=== PATIENT | male | born 1930 | race Hispanic/Latino ===

== ENCOUNTER 2016-10-30 18:14 | Inpatient (IN) | payer MEDICARE, OTHER ==
[2016-10-30 18:20] VITALS: BMI 25.0
--- NOTE | 2016-10-30 18:40 | C.PDOC ---
History Of Present Illness 86 year old male was brought to the ED after floor associate had trouble waking him up at around 6:30pm and once awake he had slurred speech, not moving right arm, and with right facial droop. Cable Way Operator notes patient had breakfast and lunch with no issues and denies any other complaints at this time. Time Seen by Provider: 10/30/16 18:30 Chief Complaint (Nursing): Altered Mental Status History Per: Other (floor associate) History/Exam Limitations: None Onset/Duration Of Symptoms: Mins Onset Of Symptoms: Other (6:30) Current Symptoms Are (Timing): Better Recent travel outside of the [place]: No Associated Symptoms: denies: Chills, Sweating, Vomiting, Diarrhea, Falling Past Medical History Reviewed: Historical Data, Nursing Documentation, Vital Signs Vital Signs: Last Vital Signs Temp 98.7 F 10/30/16 18:42 Pulse 71 10/30/16 19:26 Resp 16 10/30/16 19:26 BP 118/66 10/30/16 19:26 Pulse Ox 98 10/30/16 19:26 - Medical History PMH: Depression Family History: States: No Known Family Hx - Social History Hx Alcohol Use: No Hx Substance Use: No - Immunization History Hx Tetanus Toxoid Vaccination: No Hx Influenza Vaccination: No Hx Pneumococcal Vaccination: No Review Of Systems Constitutional: Negative for: Fever, Chills, Sweats Gastrointestinal: Negative for: Nausea, Vomiting, Abdominal Pain, Diarrhea Neurological: Positive for: Change in Speech (slurred speech ), Other (facial droop and not moving right arm ) Physical Exam - Physical Exam Appears: Non-toxic, No Acute Distress Skin: Warm, Dry Head: Normacephalic Eye(s): bilateral: Normal Inspection, PERRL, EOMI Oral Mucosa: Moist Neck: Normal ROM, Supple Chest: Symmetrical Cardiovascular: Rhythm Regular Respiratory: No Accessory Muscle Use, No Rales, No Rhonchi, No Stridor, No Wheezing Gastrointestinal/Abdominal: Soft, No Tenderness, No Distention, No Guarding, No Rebound Extremity: No Tenderness, Other (flacid right arm and negative babinski's ) Extremity: Bilateral: Atraumatic Pulses: Left Carotid: Normal, Right Carotid: Normal Neurological/Psych: No Oriented x3, No Normal Speech, No Normal Cranial Nerves, No Normal Motor, Eyes Open With Command, Dysarthria, Other (awake, alert, following commands but confused speech) Gait: Other (patient is non-ambulatory) Other Neurological Findings: Facial Palsy (right facial droop ) Extremity: Right: No Drift, No Effort Against [place], Left: No Effort Against [place], No Movement, Upper: No Drift, No Movement, Lower: No Effort Against [place] ED Course And Treatment - Laboratory Results Result Diagrams: 10/30/16 19:05 10/30/16 19:05 Lab Interpretation: No Acute Changes ECG: Interpreted By Id ECG Rhythm: Sinus Rhythm (with PACs) ECG Interpretation: No Acute Changes - Radiology CXR: Interpreted by Id CXR Interpretation: Yes: No Acute Disease (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 Parenchymal hemorrhage involving the left lentiform nucleus extending medially into the thalamus. and superiorly into the dos santos radiata. Minimal mass effect noted. 2. Cortical atrophy. 3. Lacunar infarct in the right basal ganglia. 4. Encephalomalacia in deep white matter structures reflecting small vessel ischemic disease Reevaluation Time: 20:53 Reassessment Condition: Unchanged (Patient is stable and remains awake and alert.) - Physician Consult Information Time Consulting Physician Contacted: 20:53 Physician Contacted: Casa Fischer Jr. Outcome Of Conversation: Case discussed with Dr Dos Santos who states that this intracranial bleed is not a surgical case. Patient will be admitted to Dr Fischer for medical management. Accepted to ICU by Dr Barksdale NIHSS Stroke Scale - Date/Time Evaluation Performed Date Performed: 10/30/16 Time Performed: 19:29 When Was NIHSS Performed: Baseline - How Severe is the [place]oke Level of Consciousness: 0=Alert LOC to Questions: 0=Both comments correct LOC to commands: 0=Obeys both correctly Best Gaze: 0=Normal Visual: 0=No visual loss Facial: 1=Minor asymmetry Motor Arm - Left: 0=No drift Motor Arm - Right: 4=No movement Motor Leg - Left: 3=No effort against gravity (falls immediately) Motor Leg - Right: 3=No effort against gravity (falls immediately) Limb Ataxia: 0=Absent Sensory: 0=Normal Best Language: 1=Mild to moderate aphasia Dysarthia: 2=Severe, near unintelligible or worse Extinction & Inattention (Neglect): 0=Normal, no object Score: 14 Severity Of Stroke: 5-15= Moderate Stroke Disposition - Disposition Disposition: HOSPITALIZED Disposition Time: 20:55 Condition: SERIOUS - Clinical Impression Clinical Impression: Intracranial hemorrhage - Scribe Statement The provider has reviewed the documentation as recorded by the Scribanup Levi All medical record entries made by the Maira were at my direction and personally dictated by me. I have reviewed the chart and agree that the record accurately reflects my personal performance of the history, physical exam, medical decision making, and the department course for this patient. I have also personally directed, reviewed, and agree with the discharge instructions and disposition.
[2016-10-30 19:11] LABS: BASO # 0.1 K/uL (0.0-0.2); BASO % 0.7 % (0.0-2.0); EOS # 0.3 K/uL (0.0-0.7); EOS % 2.6 % (0.0-4.0); HEMATOCRIT 46.9 % (35.0-51.0); LYMPH # 1.3 K/uL (1.0-4.3); LYMPH % 13.1 % (20.0-40.0); MEAN CELL VOLUME 92.2 fL (80.0-94.0); MEAN CORPUSCULAR HEMOGLOBIN 29.7 pg (27.0-31.0); MEAN CORPUSCULAR HGB CONC 32.2 g/dL (33.0-37.0); MEAN PLATELET VOLUME 8.6 fL (7.2-11.7); MONO # 0.6 K/uL (0.0-0.8); MONO % 6.2 % (0.0-10.0); WHITE BLOOD COUNT 10.1 K/uL (4.8-10.8)
[2016-10-30 19:22] LABS: CHLORIDE 104 mmol/L (98-107); SODIUM 140 mmol/L (132-148)
[2016-10-30 19:23] LABS: POTASSIUM 4.4 mmol/L (3.6-5.2)
[2016-10-30 19:24] LABS: CARBON DIOXIDE 22 mmol/L (22-30); CHOLESTEROL 148 mg/dL (0-199); GFR AFRICAN-AMERICAN > 60
[2016-10-30 19:25] LABS: ALB/GLOB RATIO 1.1 (1.0-2.1); ALKALINE PHOSPHATASE 97 U/L (38-126); ALT/SGPT 13 U/L (21-72); AST/SGOT 21 U/L (17-59); BILIRUBIN,TOTAL 0.9 mg/dL (0.2-1.3); BLOOD UREA NITROGEN 21 mg/dL (9-20); CALCIUM 8.9 mg/dl (8.6-10.4); GLUCOSE,RANDOM 88 mg/dL (75-110); TOTAL PROTEIN 7.9 g/dL (6.3-8.3)
--- NOTE | 2016-10-30 19:32 | CT ---
EXAM: CT Head Without Intravenous Contrast CLINICAL HISTORY: 86 years old, male; Signs and symptoms; Altered mental status/memory loss; Additional info: Code stroke TECHNIQUE: Axial computed tomography images of the head/brain without intravenous contrast. This CT exam was performed using one or more of the following dose reduction techniques: automated exposure control, adjustment of the mA and/or kV according to patient size, and/or use of iterative reconstruction technique. EXAM DATE/TIME: Exam ordered 10/30/2016 6:31 PM COMPARISON: No relevant prior studies available. FINDINGS: Brain: There is a focal area of hyperintensity noted within the left lentiform nucleus extending into the thalamus reflecting a parenchymal hemorrhage. There is mild mass effect upon the body of the left lateral ventricle. 4 mm low density area in the right lentiform nucleus is consistent with a lacunar infarct. There is mild generalized cortical atrophy. Low density is noted in the periventricular white matter extending into the dos santos radiata and centrum semiovale bilaterally reflecting encephalomalacia related to small vessel ischemic disease. Bones/joints: Unremarkable. No acute fracture. Soft tissues: Unremarkable. Sinuses: Unremarkable as visualized. No acute sinusitis. Mastoid air cells: Unremarkable as visualized. No mastoid effusion. IMPRESSION: 1. Parenchymal hemorrhage involving the left lentiform nucleus extending medially into the thalamus and superiorly into the dos santos radiata. Minimal mass effect noted 2. Cortical atrophy 3. Lacunar infarct in the right basal ganglia 4. Encephalomalacia in deep white matter structures reflecting small vessel ischemic disease
--- NOTE | 2016-10-30 21:20 | CP.PCM.HP ---
History of Present Illness - History of Present Illness History of Present Illness: CC: AMS 86 M with PMH of Prostate CA was brought in by EMS to the [facility] after bin cleaner had trouble waking him up at around 6:30pm. History was provided by bin cleaner, Tania ([phone]), since patient was unable to provide any information. Patient had slurred speech, right hemiparesis and right facial droop at that time. Log Getter reports patient had breakfast and lunch with no issues. Patient was last seen at his baseline around noon. Patient is normally bedridden but able to move all four extremities and alert, awake, and oriented x 3. ROS was unobtainable due to altered mental status. PMD: Dr. Tellez (LEGAL LIBRARIAN Leelee Jimenez sees him at home monthly) PMH: Prostate Meds: Home Medication list needs verified Allergy: NKDA PSH: ?Prostate surgery Hosp: multiple admission for back pain and weakness 3 years ago FH: unknown Social: bin cleaner denies tobacco/ETOH/illicit drug use, bin cleaner lives above patient in apartment, patient is bedridden since falling 2 years ago, needs assistance with daily activities (bathing, changing, moving) Present on Admission - Present on Admission Any Indicators Present on Admission: No History of DVT/PE: No History of Uncontrolled Diabetes: No Urinary Catheter: No Decubitus Ulcer Present: No Review of Systems - Review of Systems Systems not reviewed;Unavailable: Acuity of Condition, Altered Mental Status Past Patient History - Past Social History Smoking Status: Never Smoked - GENITOURINARY/GYNECOLOGICAL Hx Genitourinary Disorders: Yes Other/Comment: prostate cancer - PSYCHIATRIC Hx Depression: Yes Hx Substance Use: No - SURGICAL HISTORY Hx Surgeries: No Meds Allergies/Adverse Reactions: Allergies Allergy/AdvReac Type Severity Reaction Status Date / Time No Known Allergies Allergy Verified 10/30/16 18:17 Physical Exam - Constitutional Appears: Confused - Head Exam Head Exam: ATRAUMATIC, NORMOCEPHALIC - Eye Exam Eye Exam: Normal appearance Pupil Exam: Miosis - ENT Exam ENT Exam: Mucous Membranes Dry - Neck Exam Neck exam: Positive for: Normal Inspection - Respiratory Exam Respiratory Exam: Rhonchi, Wheezes. absent: Accessory Muscle Use, Respiratory Distress - Cardiovascular Exam Cardiovascular Exam: RRR, +S1, +S2 - GI/Abdominal Exam GI & Abdominal Exam: Normal Bowel Sounds, Soft. absent: Distended, Firm, Guarding, Rebound - Extremities Exam Extremities exam: Positive for: normal capillary refill, pedal pulses present Additional comments: R sided hemiparesis - Back Exam Back exam: NORMAL INSPECTION - Neurological Exam Neurological exam: Altered Additional comments: patient aphasic, mumbling when asked questions - Expanded Neurological Exam Expanded Neurological exam: Total Aphasia Speech: Expressive Aphasia, Garbled Speech Cranial nerves: EOM's Intact: Normal, Facial [place] w/Forehead Movement: Abnormal Right Neuro motor strength exam: Left Upper Extremity: 4, Right Upper Extremity: 0, Left Lower Extremity: 3, Right Lower Extremity: 0 Coma Scale Eye Opening: To Voice Coma Scale Motor Response: Localizes to Pain Coma Scale Verbal: Confused, Incomprehensible Coma Scale Total: 14 - Psychiatric Exam Psychiatric exam: Flat Affect - Skin Skin Exam: Dry, Intact, Normal Color Results - Vital Signs Recent Vital Signs: Last Vital Signs Temp 98.2 F 10/30/16 20:30 Pulse 76 10/30/16 20:30 Resp 18 10/30/16 20:30 BP 120/67 10/30/16 20:30 Pulse Ox 100 10/30/16 20:30 - Labs Result Diagrams: 10/30/16 19:05 10/30/16 19:05 Assessment & Plan - Assessment and Plan (Free Text) Plan: 1. Altered Mental Status ICU CT head: 1. Parenchymal hemorrhage involving the left lentiform nucleus extending medially into the thalamus and superiorly into the dos santos radiata. Minimal mass effect noted 2. Cortical atrophy 3. Lacunar infarct in the right basal ganglia 4. Encephalomalacia in deep white matter structures reflecting small vessel ischemic disease (see full report) CXR EKG: Sinus rhythm with PVCs at a rate of 69 bpm Neurology consult, Dr. Jose, help appreciated Neurochecks Q1 Elevated head of bed f/u daily labs PT/OT 2. History of Prostate CA Hold flomax 3. Prophylactic Measures Scds anticoagulation contraindicated due to IC hemorrhage Protonix 40 mg IVP daily
[2016-10-31 01:34] LABS: RBC URINE 11 /hpf (0-3); URINE BACTERIA MOD (<OCC); URINE BILIRUBIN NEGATIVE (NEGATIVE); URINE BLOOD 2+ (NEGATIVE); URINE COLOR Yellow (YELLOW); URINE GLUCOSE (UA) NORMAL (Normal); URINE KETONE NEGATIVE (NEGATIVE); URINE LEUKOCYTE ESTERASE 3+ Leu/uL (Negative); URINE PROTEIN 1+ mg/dL (NEGATIVE); URINE UROBILINOGEN NORMAL mg/dL (0.2-1.0); WBC CLUMPS FEW /hpf; WBC URINE 601 /hpf (0-5)
--- NOTE | 2016-10-31 04:32 | CP.PCM.CON ---
History of Present Illness - History of Present Illness History of Present Illness: CC: AMS 86 M with PMH of Prostate CA was brought in by EMS to the [facility] after rubber block layer had trouble waking him up at around 6:30pm. History was provided by rubber block layer, Tania ([phone]), since patient was unable to provide any information. Patient had slurred speech, right hemiparesis and right facial droop at that time. Note Teller reports patient had breakfast and lunch with no issues. Patient was last seen at his baseline around noon. Patient is normally bedridden but able to move all four extremities and alert, awake, and oriented x 3. ROS was unobtainable due to altered mental status. PMD: Dr. Tellez (APPAREL MERCHANDISER Leelee Jimenez sees him at home monthly) PMH: Prostate Meds: Home Medication list needs verified Allergy: NKDA PSH: ?Prostate surgery Hosp: multiple admission for back pain and weakness 3 years ago FH: unknown Social: rubber block layer denies tobacco/ETOH/illicit drug use, rubber block layer lives above patient in apartment, patient is bedridden since falling 2 years ago, needs assistance with daily activities (bathing, changing, moving) Review of Systems - Review of Systems All systems: reviewed and no additional remarkable complaints except Review of Systems: confused Past Patient History - Past Social History Smoking Status: Never Smoked - GENITOURINARY/GYNECOLOGICAL Hx Genitourinary Disorders: Yes Other/Comment: prostate cancer - PSYCHIATRIC Hx Depression: Yes Hx Substance Use: No - SURGICAL HISTORY Hx Surgeries: No - ANESTHESIA Hx Anesthesia: No Meds Allergies/Adverse Reactions: Allergies Allergy/AdvReac Type Severity Reaction Status Date / Time No Known Allergies Allergy Verified 10/30/16 18:17 - Medications Medications: Current Medications Ondansetron HCl (Zofran Inj) 4 mg IVP Q6H PRN PRN Reason: Nausea/Vomiting Pantoprazole Sodium (Protonix Inj) 40 mg IVP DAILY JENNIFER Physical Exam - Head Exam Head Exam: ATRAUMATIC Additional comments: rt side weakness mumbling eye focusing moving left side follows simple commands Results - Vital Signs Recent Vital Signs: Last Vital Signs Temp 98.2 F 10/30/16 20:30 Pulse 73 10/31/16 04:00 Resp 18 10/31/16 04:00 BP 109/66 10/31/16 03:41 Pulse Ox 96 10/31/16 04:00 - Labs Result Diagrams: 10/30/16 19:05 10/30/16 19:05 Labs: Laboratory Results - last 24 hr 10/31/16 00:00 Urine Color Yellow Urine Clarity Hazy Urine pH 5.0 Ur Specific [place] 1.012 Urine Protein 1+ H Urine Glucose (UA) Normal Urine Ketones Negative Urine Blood 2+ H Urine Nitrate Positive H Urine Bilirubin Negative Urine Urobilinogen Normal Ur Leukocyte Esterase 3+ H Urine WBC (Auto) 601 H Urine RBC (Auto) 11 H Urine WBC Clumps (Auto) Few H Ur Squamous Epith Cells 2 Urine Bacteria Mod H Assessment & Plan (1) Vasculopathy Status: Acute (2) Intracranial hemorrhage Assessment and Plan: ICH likely vasculopathy close neuro watch BP control no anti coagulations now Status: Acute
[2016-10-31 06:20] LABS: BASO # 0.1 K/uL (0.0-0.2); BASO % 1.2 % (0.0-2.0); EOS # 0.3 K/uL (0.0-0.7); EOS % 3.2 % (0.0-4.0); HEMATOCRIT 42.5 % (35.0-51.0); LYMPH # 1.4 K/uL (1.0-4.3); LYMPH % 15.2 % (20.0-40.0); MEAN CELL VOLUME 90.6 fL (80.0-94.0); MEAN CORPUSCULAR HEMOGLOBIN 30.5 pg (27.0-31.0); MEAN CORPUSCULAR HGB CONC 33.7 g/dL (33.0-37.0); MEAN PLATELET VOLUME 9.1 fL (7.2-11.7); MONO # 0.7 K/uL (0.0-0.8); MONO % 7.2 % (0.0-10.0); NRBC % 0.1 % (0.0-2.0); RED CELL DISTRIBUTION WIDTH 14.3 % (11.5-14.5); WHITE BLOOD COUNT 9.2 K/uL (4.8-10.8)
[2016-10-31 06:30] LABS: CHLORIDE 106 mmol/L (98-107); SODIUM 141 mmol/L (132-148)
[2016-10-31 06:31] LABS: POTASSIUM 3.6 mmol/L (3.6-5.2)
[2016-10-31 06:32] LABS: CHOLESTEROL 126 mg/dL (0-199)
[2016-10-31 06:33] LABS: ALKALINE PHOSPHATASE 92 U/L (38-126); ALT/SGPT 15 U/L (21-72); AST/SGOT 12 U/L (17-59); BILIRUBIN,TOTAL 0.8 mg/dL (0.2-1.3); BLOOD UREA NITROGEN 20 mg/dL (9-20); CALCIUM 8.6 mg/dl (8.6-10.4); CARBON DIOXIDE 24 mmol/L (22-30); GFR AFRICAN-AMERICAN > 60; GLUCOSE,RANDOM 96 mg/dL (75-110); PHOSPHOROUS 3.2 mg/dL (2.5-4.5); TOTAL PROTEIN 6.9 g/dL (6.3-8.3)
[2016-10-31 06:34] LABS: MAGNESIUM 2.2 mg/dL (1.6-2.3)
[2016-10-31 07:00] LABS: THYROID STIMULATING HORMONE 1.75 mIU/L (0.46-4.68)
[2016-10-31 07:59] LABS: INR 1.2
--- NOTE | 2016-10-31 08:35 | RAD ---
HISTORY: altered mental status COMPARISON: Chest x-ray performed 07/10/12 TECHNIQUE: Chest, one view. FINDINGS: LUNGS: Biapical pleural thickening. Prominent interstitial/fibrotic changes predominantly in the lung periphery and lung bases. Granulomatous changes with multiple calcified nodules in the lung apices. No significant pleural effusion. No definite pneumothorax. Please note that chest x-ray has limited sensitivity for the detection of pulmonary masses. CARDIOVASCULAR: Mild cardiomegaly. Ectatic aorta. OSSEOUS STRUCTURES: Degenerative changes. Osseous demineralization. VISUALIZED UPPER ABDOMEN: Unremarkable. OTHER FINDINGS: None. IMPRESSION: Chronic appearing interstitial changes/ fibrotic changes. Granulomatous infection. Biapical pleural thickening.
[2016-10-31] MEDS: Sodium Chloride 0.9% 1,000 ML IV SCH (11:20)
--- NOTE | 2016-10-31 19:30 | CP.PCM.PN ---
<Lora Madden - Last Filed: 10/31/16 19:25> Subjective - Date & Time of Evaluation Date of Evaluation: 10/31/16 Time of Evaluation: 19:25 - Subjective Subjective: Patient seen and examined at bedside with attending. Review of system unable to be obtained due to intracranial hemorrhage. Patient displays dysarthria and aphasia. Patient DNR/DNI. Objective - Vital Signs/Intake and Output Vital Signs (last 24 hours): Temp Pulse Resp BP Pulse Ox 96.7 F L 74 19 103/66 96 10/31/16 16:00 10/31/16 19:00 10/31/16 19:00 10/31/16 18:40 10/31/16 19:00 Intake and Output: 10/31/16 11/01/16 18:59 06:59 Intake Total 1065 Output Total 250 Balance 815 - Medications Medications: Current Medications Sodium Chloride (Sodium Chloride 0.9%) 1,000 mls @ 75 mls/hr IV .[id number] [facility] Last Admin: 10/31/16 11:20 Dose: 75 mls/hr Ondansetron HCl (Zofran Inj) 4 mg IVP Q6H PRN PRN Reason: Nausea/Vomiting Pantoprazole Sodium (Protonix Inj) 40 mg IVP DAILY [facility] Last Admin: 10/31/16 10:50 Dose: 40 mg Tamsulosin HCl (Flomax) 0.4 mg PO DAILY [facility] - Labs Labs: 10/31/16 06:15 10/31/16 06:15 PT 13.7 SECONDS (9.7-12.2) H 10/31/16 07:43 INR 1.2 10/31/16 07:43 APTT 27 SECONDS (21-34) D 10/31/16 07:43 - Constitutional Appears: Non-toxic, No Acute Distress, Chronically Ill - Head Exam Head Exam: ATRAUMATIC, NORMAL INSPECTION, NORMOCEPHALIC - Eye Exam Eye Exam: Normal appearance - ENT Exam ENT Exam: Mucous Membranes Moist - Neck Exam Neck Exam: Normal Inspection - Respiratory Exam Respiratory Exam: Clear to Ausculation Bilateral, NORMAL BREATHING PATTERN. absent: Rales, Rhonchi, Wheezes - Cardiovascular Exam Cardiovascular Exam: +S1, +S2. absent: Tachycardia - GI/Abdominal Exam GI & Abdominal Exam: Soft, Normal Bowel Sounds - Neurological Exam Neurological Exam: Alert, Awake. absent: Oriented x3 Additional comments: dysarthria and aphasia - Psychiatric Exam Additional comments: unable to assess Assessment and Plan - Assessment and Plan (Free Text) Plan: Altered Mental Status ICU Code State DNR/DNI f/u Repeat CT head CT head: 1. Parenchymal hemorrhage involving the left lentiform nucleus extending medially into the thalamus and superiorly into the dos santos radiata. Minimal mass effect noted 2. Cortical atrophy 3. Lacunar infarct in the right basal ganglia 4. Encephalomalacia in deep white matter structures reflecting small vessel ischemic disease (see full report) CXR : Chronic appearing interstitial changes/fibrotic changes. Granulomatous infection. Biapical pleural thickening. EKG: Sinus rhythm with PVCs at a rate of 69 bpm Neurology consult, Dr. Jose, help appreciated Neurochecks Q1 Elevated head of bed f/u daily labs Management per ICU PT/OT History of Prostate CA Continue flomax Prophylactic Measures Scds anticoagulation contraindicated due to IC hemorrhage Protonix 40 mg IVP daily <Casa Fischer Jr. - Last Filed: 11/07/16 11:16> Objective - Vital Signs/Intake and Output Vital Signs (last 24 hours): Temp Pulse Resp BP Pulse Ox 98.5 F 73 20 157/84 H 97 11/03/16 15:00 11/03/16 15:00 11/03/16 15:00 11/03/16 15:00 11/03/16 15:00 - Labs Labs: 11/03/16 07:47 11/03/16 07:47 PT 13.7 SECONDS (9.7-12.2) H 10/31/16 07:43 INR 1.2 10/31/16 07:43 APTT 27 SECONDS (21-34) D 10/31/16 07:43 Attending/Attestation - Attestation I have personally seen and examined this patient.: Yes I have fully participated in the care of the patient.: Yes I have reviewed all pertinent clinical information, including history, physical exam and plan: Yes Notes (Text): 11/07/16 11:16 Agree with resident note and findings
--- NOTE | 2016-10-31 19:49 | CP.PCM.CON ---
History of Present Illness - History of Present Illness History of Present Illness: Mr. Cornelius is an 86-year-old man with a past medical history of dementia, who is essentially bed-bound and dependent, who was found with right side weakness and speech difficulty by his dramatic director. He was brought to the ED, where a CT of the head showed a left basal ganglia intraparenchymal hemorrhage. The patient is unable to provide any information since he is significantly aphasic, but the information was obtained form the chart, dramatic director and nursing. According to the history, the patient is not hypertensive and was only being treated for arthritis pain and insomnia. Review of Systems - Review of Systems Systems not reviewed;Unavailable: Dementia, Altered Mental Status All systems: reviewed and no additional remarkable complaints except Past Patient History - Past Social History Smoking Status: Never Smoked - MUSCULOSKELETAL/RHEUMATOLOGICAL Hx Falls: No - GENITOURINARY/GYNECOLOGICAL Hx Genitourinary Disorders: Yes Other/Comment: prostate cancer - PSYCHIATRIC Hx Depression: Yes Hx Substance Use: No - SURGICAL HISTORY Hx Surgeries: No - ANESTHESIA Hx Anesthesia: No Meds Allergies/Adverse Reactions: Allergies Allergy/AdvReac Type Severity Reaction Status Date / Time No Known Allergies Allergy Verified 10/30/16 18:17 - Medications Medications: Current Medications Sodium Chloride (Sodium Chloride 0.9%) 1,000 mls @ 75 mls/hr IV .[id number] [facility] Last Admin: 10/31/16 11:20 Dose: 75 mls/hr Ondansetron HCl (Zofran Inj) 4 mg IVP Q6H PRN PRN Reason: Nausea/Vomiting Pantoprazole Sodium (Protonix Inj) 40 mg IVP DAILY [facility] Last Admin: 10/31/16 10:50 Dose: 40 mg Tamsulosin HCl (Flomax) 0.4 mg PO DAILY [facility] Physical Exam - Constitutional Appears: Agitated, Confused - Head Exam Head Exam: ATRAUMATIC, NORMAL INSPECTION, NORMOCEPHALIC - Eye Exam Eye Exam: EOMI, Normal appearance, PERRL - ENT Exam ENT Exam: Mucous Membranes Moist, Normal Exam - Neck Exam Neck exam: Positive for: Normal Inspection - Respiratory Exam Respiratory Exam: Clear to Auscultation Bilateral, NORMAL BREATHING PATTERN - Cardiovascular Exam Cardiovascular Exam: REGULAR RHYTHM, +S1, +S2 - GI/Abdominal Exam GI & Abdominal Exam: Normal Bowel Sounds, Soft. absent: Tenderness - Rectal Exam Rectal Exam: Deferred - Extremities Exam Extremities exam: Positive for: normal inspection - Back Exam Back exam: NORMAL INSPECTION - Neurological Exam Neurological exam: Altered, CN II-XII Intact Additional comments: Productive and receptive aphasia with dysarthria and oropharyngeal weakness. Right side hemiplegia with brisk reflexes and upgoing plantar response. Left side moves, but he does not follow commands. Reflexes are normal on the left with downgoing plantar response. Sensation appears to be intact on the left. Gait or Romberg could not be assessed. - Psychiatric Exam Psychiatric exam: Agitated, Anxious - Skin Skin Exam: Dry, Intact, Normal Color, Warm Results - Vital Signs Recent Vital Signs: Last Vital Signs Temp 96.7 F L 10/31/16 16:00 Pulse 74 10/31/16 19:00 Resp 19 10/31/16 19:00 BP 103/66 10/31/16 18:40 Pulse Ox 96 10/31/16 19:00 - Labs Result Diagrams: 10/31/16 06:15 10/31/16 06:15 Labs: Laboratory Results - last 24 hr 10/31/16 10/31/16 10/31/16 00:00 06:15 06:15 WBC 9.2 RBC 4.69 Hgb 14.3 Hct 42.5 MCV 90.6 MCH 30.5 MCHC 33.7 RDW 14.3 Plt Count 195 MPV 9.1 Neut % (Auto) 73.2 Lymph % (Auto) 15.2 L [place] % (Auto) 7.2 Eos % (Auto) 3.2 Baso % (Auto) 1.2 Neut # 6.7 Lymph # 1.4 [place] # 0.7 Eos # 0.3 Baso # 0.1 PT INR APTT Sodium 141 Potassium 3.6 Chloride 106 Carbon Dioxide 24 Anion Gap 15 BUN 20 Creatinine 0.9 Est GFR ( Amer) > 60 Est GFR (Non-Af Amer) > 60 POC Glucose (mg/dL) Random Glucose 96 Calcium 8.6 Phosphorus 3.2 Magnesium 2.2 Total Bilirubin 0.8 AST 12 L D ALT 15 L Alkaline Phosphatase 92 NT-Pro-B Natriuret Pep 358 Total Protein 6.9 Albumin 3.5 Globulin 3.4 Albumin/Globulin Ratio 1.0 Triglycerides 56 Cholesterol 126 LDL Cholesterol Direct 66 HDL Cholesterol 36 TSH 3rd Generation 1.75 Urine Color Yellow Urine Clarity Hazy Urine pH 5.0 Ur Specific [place] 1.012 Urine Protein 1+ H Urine Glucose (UA) Normal Urine Ketones Negative Urine Blood 2+ H Urine Nitrate Positive H Urine Bilirubin Negative Urine Urobilinogen Normal Ur Leukocyte Esterase 3+ H Urine WBC (Auto) 601 H Urine RBC (Auto) 11 H Urine WBC Clumps (Auto) Few H Ur Squamous Epith Cells 2 Urine Bacteria Mod H 10/31/16 10/31/16 10/31/16 07:29 07:43 11:27 WBC RBC Hgb Hct MCV MCH MCHC RDW Plt Count MPV Neut % (Auto) Lymph % (Auto) [place] % (Auto) Eos % (Auto) Baso % (Auto) Neut # Lymph # [place] # Eos # Baso # PT 13.7 H INR 1.2 APTT 27 D Sodium Potassium Chloride Carbon Dioxide Anion Gap BUN Creatinine Est GFR ( Amer) Est GFR (Non-Af Amer) POC Glucose (mg/dL) 89 111 H Random Glucose Calcium Phosphorus Magnesium Total Bilirubin AST ALT Alkaline Phosphatase NT-Pro-B Natriuret Pep Total Protein Albumin Globulin Albumin/Globulin Ratio Triglycerides Cholesterol LDL Cholesterol Direct HDL Cholesterol TSH 3rd Generation Urine Color Urine Clarity Urine pH Ur Specific [place] Urine Protein Urine Glucose (UA) Urine Ketones Urine Blood Urine Nitrate Urine Bilirubin Urine Urobilinogen Ur Leukocyte Esterase Urine WBC (Auto) Urine RBC (Auto) Urine WBC Clumps (Auto) Ur Squamous Epith Cells Urine Bacteria 10/31/16 16:21 WBC RBC Hgb Hct MCV MCH MCHC RDW Plt Count MPV Neut % (Auto) Lymph % (Auto) [place] % (Auto) Eos % (Auto) Baso % (Auto) Neut # Lymph # [place] # Eos # Baso # PT INR APTT Sodium Potassium Chloride Carbon Dioxide Anion Gap BUN Creatinine Est GFR ( Amer) Est GFR (Non-Af Amer) POC Glucose (mg/dL) 106 Random Glucose Calcium Phosphorus Magnesium Total Bilirubin AST ALT Alkaline Phosphatase NT-Pro-B Natriuret Pep Total Protein Albumin Globulin Albumin/Globulin Ratio Triglycerides Cholesterol LDL Cholesterol Direct HDL Cholesterol TSH 3rd Generation Urine Color Urine Clarity Urine pH Ur Specific [place] Urine Protein Urine Glucose (UA) Urine Ketones Urine Blood Urine Nitrate Urine Bilirubin Urine Urobilinogen Ur Leukocyte Esterase Urine WBC (Auto) Urine RBC (Auto) Urine WBC Clumps (Auto) Ur Squamous Epith Cells Urine Bacteria - Imaging and Cardiology CT scan - head Status: Image reviewed by me, Report reviewed by me (Stable left basal ganglia ICH with little surrounding edema. ) Assessment & Plan (1) Intracranial hemorrhage Assessment and Plan: Blood pressure has been stable and repeat imaging shows no significant expansion of the ICH. I recommend continuing good BP control, avoid anti- platelet agents or anticoagulants for the first 24-48 hours. Subcutaneous heparin is okay for DVT Px. CTA of the head should be obtained to rule out an underlying vascular malformation or aneurysm since the patient has no history of hypertension or trauma. An MRI of the brain with and without contrast can be obtained when logistically possible and when the patient is stable. PT/OT and speech therapy are recommended. Thank you for this consultation. Status: Acute Priority: High
[2016-11-01] MEDS: Sodium Chloride 0.9% 1,000 ML IV SCH ×2 (01:35→14:28)
[2016-11-01] MEDS ORDERED: Iodixanol 320 MG/ML 100 ML BOTTLE IV ONE (12:19)
--- NOTE | 2016-11-01 12:56 | CT ---
PROCEDURE: CT HEAD WITHOUT CONTRAST. HISTORY: assess ICH size COMPARISON: Comparison is made to the previous study dated 10/30/2016 TECHNIQUE: Axial computed tomography images were obtained through the head/brain without intravenous contrast. Radiation dose: Total exam DLP = 1463.26 mGy-cm. This CT exam was performed using one or more of the following dose reduction techniques: Automated exposure control, adjustment of the mA and/or kV according to patient size, and/or use of iterative reconstruction technique. FINDINGS: HEMORRHAGE: Stable appearance and size of the previously seen left intraparenchymal hemorrhage at the temporal lobe and basal ganglia without significant change compared to the previous exam. Small surrounding edema is also seen. BRAIN: Slight mass effect on the left lateral ventricle is noted. Atrophy and chronic microvascular white matter ischemic disease are again seen. VENTRICLES: Dilated ventricle likely due central atrophy. CALVARIUM: Unremarkable. PARANASAL SINUSES: Unremarkable as visualized. No significant inflammatory changes. MASTOID AIR CELLS: Unremarkable as visualized. No inflammatory changes. OTHER FINDINGS: None. IMPRESSION: Stable intraparenchymal hemorrhage at the left temporal lobe and left basal ganglia without significant interval change since the previous exam. Continuous follow-up reassessment is suggested. Preliminary report was submitted by virtual Radiology.
--- NOTE | 2016-11-01 15:28 | CP.PCM.PN ---
<LuanagregorioNeri tillman - Last Filed: 11/01/16 15:21> Subjective - Date & Time of Evaluation Date of Evaluation: 11/01/16 Time of Evaluation: 12:00 - Subjective Subjective: PGY-1 Medicine Progress Note for Dr. Fischer Patient seen and examined at bedside. Patient displays dysarthria and aphasia. He has right hemiparesis. Patient's code status is DNR/DNI. ROS unable to be obtained due to AMS. CTA will be done today. Objective - Vital Signs/Intake and Output Vital Signs (last 24 hours): Temp Pulse Resp BP Pulse Ox 97.7 F 75 12 132/61 99 11/01/16 12:00 11/01/16 11:40 11/01/16 10:00 11/01/16 11:40 11/01/16 11:40 Intake and Output: 11/01/16 11/01/16 06:59 18:59 Intake Total 825 960 Balance 825 960 - Medications Medications: Current Medications Sodium Chloride (Sodium Chloride 0.9%) 1,000 mls @ 75 mls/hr IV .[id number] [facility] Last Admin: 11/01/16 14:28 Dose: 75 mls/hr Vancomycin/Sodium Chloride (Vancocin) 1 gm in 200 mls @ 133 mls/hr IVPB Q12H [facility] Stop: 11/06/16 15:31 Ondansetron HCl (Zofran Inj) 4 mg IVP Q6H PRN PRN Reason: Nausea/Vomiting Pantoprazole Sodium (Protonix Inj) 40 mg IVP DAILY [facility] Last Admin: 11/01/16 10:51 Dose: 40 mg Tamsulosin HCl (Flomax) 0.4 mg PO DAILY [facility] Last Admin: 11/01/16 10:50 Dose: 0.4 mg - Labs Labs: 10/31/16 06:15 10/31/16 06:15 PT 13.7 SECONDS (9.7-12.2) H 10/31/16 07:43 INR 1.2 10/31/16 07:43 APTT 27 SECONDS (21-34) D 10/31/16 07:43 - Constitutional Appears: Non-toxic, No Acute Distress - Head Exam Head Exam: ATRAUMATIC, NORMOCEPHALIC - Eye Exam Eye Exam: EOMI, Normal appearance Pupil Exam: PERRL - ENT Exam ENT Exam: Mucous Membranes Moist - Respiratory Exam Respiratory Exam: Clear to Ausculation Bilateral, NORMAL BREATHING PATTERN - Cardiovascular Exam Cardiovascular Exam: REGULAR RHYTHM, +S1, +S2 - GI/Abdominal Exam GI & Abdominal Exam: Soft, Normal Bowel Sounds - Extremities Exam Extremities Exam: Normal Capillary Refill - Back Exam Back Exam: absent: CVA tenderness (L), CVA tenderness (R) - Neurological Exam Neurological Exam: Alert, Awake Neuro motor strength exam: Left Upper Extremity: 3, Right Upper Extremity: 0, Left Lower Extremity: 3, Right Lower Extremity: 0 Additional comments: dysarthria and aphasia - Psychiatric Exam Additional comments: unable to assess - Skin Skin Exam: Dry, Intact, Normal Color, Warm Assessment and Plan - Assessment and Plan (Free Text) Plan: 1. Altered Mental Status med/surg now Code Status DNR/DNI CTA ordered Repeat CT head: Stable intraparenchymal hemorrhage at the left temporal lobe and left basal ganglia without significant interval change since the previous exam. Continuous follow-up reassessment is suggested (see full report) CT head: 1. Parenchymal hemorrhage involving the left lentiform nucleus extending medially into the thalamus and superiorly into the dos santos radiata. Minimal mass effect noted 2. Cortical atrophy 3. Lacunar infarct in the right basal ganglia 4. Encephalomalacia in deep white matter structures reflecting small vessel ischemic disease (see full report) CXR : Chronic appearing interstitial changes/fibrotic changes. Granulomatous infection. Biapical pleural thickening. EKG: Sinus rhythm with PVCs at a rate of 69 bpm Neurology consult, Dr. Jose, help appreciated Neurochecks Q1 Elevated head of bed f/u daily labs Management per ICU PT/OT 2. Bacteremia Blood culture grew Gram positive cocci, Staph aureus and Coagulase Neg staph Repeat blood culture then start Vancomycin 1 gm IVPB Q12H Vanco trough 30 min before 4th dose is given 3. History of Prostate CA Continue flomax 4. Prophylactic Measures Scds anticoagulation contraindicated due to IC hemorrhage Protonix 40 mg IVP daily <Casa Fischer Jr. - Last Filed: 11/07/16 11:18> Objective - Vital Signs/Intake and Output Vital Signs (last 24 hours): Temp Pulse Resp BP Pulse Ox 98.5 F 73 20 157/84 H 97 11/03/16 15:00 11/03/16 15:00 11/03/16 15:00 11/03/16 15:00 11/03/16 15:00 - Labs Labs: 11/03/16 07:47 11/03/16 07:47 PT 13.7 SECONDS (9.7-12.2) H 10/31/16 07:43 INR 1.2 10/31/16 07:43 APTT 27 SECONDS (21-34) D 10/31/16 07:43 Attending/Attestation - Attestation I have personally seen and examined this patient.: Yes I have fully participated in the care of the patient.: Yes I have reviewed all pertinent clinical information, including history, physical exam and plan: Yes Notes (Text): 11/07/16 11:18 Agree with resident note and findings
--- NOTE | 2016-11-01 15:42 | CARD ---
APPROVED REPORT EKG Measurement Heart [id number] <Conclusion> Sinus rhythm with premature supraventricular complexes Otherwise normal ECG
--- NOTE | 2016-11-01 16:26 | CT ---
PROCEDURE: CT Angiography of the Brain. HISTORY: r/o AVM, aneurysm COMPARISON: None available. TECHNIQUE: CT angiography of the intracranial arteries was performed. Coronal and sagittal maximum intensity projection reformated images were generated. This CT exam was performed using one or more of the following dose reduction techniques: Automated exposure control, adjustment of the mA and/or kV according to patient size, and/or use of iterative reconstruction technique. FINDINGS: INTERNAL CEREBRAL ARTERIES: Normal in caliber. The skull base, petrous, cavernous and supraclinoid segments are bilaterally widely patient. ANTERIOR CEREBRAL ARTERIES: Normal in caliber. A1 and A2 segments are widely patent. Smaller distal branches unremarkable, as visualized. MIDDLE CEREBRAL ARTERIES: Normal in caliber. M1 and M2 segments are widely patent. Perisylvian branches grossly symmetric. POSTERIOR CIRCULATION: Basilar Artery: Normal. Distal Vertebral Arteries: Normal. The left vertebral artery is dominant. Posterior Cerebral Arteries: Normal. Posterior Inferior Cerebellar Arteries: Normal. ANEURYSM/ VASCULAR MALFORMATIONS: None. OTHER FINDINGS: None. IMPRESSION: No evidence of saccular aneurysm or AV malformation. Please note abnormality in the left basal ganglia cannot be entirely excluded due to the presence of acute hemorrhage. Follow-up MRI with intravenous contrast/ CT angiogram after resolution of hemorrhage would be helpful to exclude underlying mass/vascular malformation.
[2016-11-01] MEDS: Vancomycin 1 gm/NS 200 ml 1 GM/200 ML BAG IVPB SCH (16:57)
[2016-11-01 17:09] LABS: HEMATOCRIT 39.5 % (35.0-51.0); MEAN CELL VOLUME 90.9 fL (80.0-94.0); MEAN CORPUSCULAR HEMOGLOBIN 29.9 pg (27.0-31.0); MEAN CORPUSCULAR HGB CONC 32.9 g/dL (33.0-37.0); RED CELL DISTRIBUTION WIDTH 14.1 % (11.5-14.5); WHITE BLOOD COUNT 8.1 K/uL (4.8-10.8)
[2016-11-01 17:19] LABS: CHLORIDE 106 mmol/L (98-107)
[2016-11-01 17:20] LABS: POTASSIUM 3.7 mmol/L (3.6-5.2); SODIUM 139 mmol/L (132-148)
[2016-11-01 17:22] LABS: AST/SGOT 14 U/L (17-59); BILIRUBIN,TOTAL 0.6 mg/dL (0.2-1.3); CARBON DIOXIDE 21 mmol/L (22-30); GFR AFRICAN-AMERICAN > 60
[2016-11-01 17:23] LABS: ALKALINE PHOSPHATASE 82 U/L (38-126); ALT/SGPT 14 U/L (21-72); BLOOD UREA NITROGEN 17 mg/dL (9-20); CALCIUM 8.3 mg/dl (8.6-10.4); GLUCOSE,RANDOM 89 mg/dL (75-110); TOTAL PROTEIN 6.7 g/dL (6.3-8.3)
[2016-11-02] MEDS: Sodium Chloride 0.9% 1,000 ML IV SCH ×3 (03:15→17:59)
[2016-11-02] MEDS: Vancomycin 1 gm/NS 200 ml 1 GM/200 ML BAG IVPB SCH ×2 (04:35→17:58)
[2016-11-02 08:32] LABS: BASO # 0.1 K/uL (0.0-0.2); BASO % 1.3 % (0.0-2.0); EOS # 0.3 K/uL (0.0-0.7); EOS % 4.5 % (0.0-4.0); HEMATOCRIT 40.9 % (35.0-51.0); LYMPH # 1.3 K/uL (1.0-4.3); LYMPH % 17.4 % (20.0-40.0); MEAN CELL VOLUME 90.3 fL (80.0-94.0); MEAN CORPUSCULAR HEMOGLOBIN 29.5 pg (27.0-31.0); MEAN CORPUSCULAR HGB CONC 32.7 g/dL (33.0-37.0); MEAN PLATELET VOLUME 8.4 fL (7.2-11.7); MONO # 0.6 K/uL (0.0-0.8); MONO % 7.7 % (0.0-10.0); RED CELL DISTRIBUTION WIDTH 14.2 % (11.5-14.5); WHITE BLOOD COUNT 7.6 K/uL (4.8-10.8)
[2016-11-02 08:39] LABS: CHLORIDE 107 mmol/L (98-107); SODIUM 142 mmol/L (132-148)
[2016-11-02 08:40] LABS: POTASSIUM 3.6 mmol/L (3.6-5.2)
[2016-11-02 08:41] LABS: GFR AFRICAN-AMERICAN > 60
[2016-11-02 08:42] LABS: ALB/GLOB RATIO 0.9 (1.0-2.1); ALKALINE PHOSPHATASE 86 U/L (38-126); AST/SGOT 14 U/L (17-59); BILIRUBIN,TOTAL 0.8 mg/dL (0.2-1.3); BLOOD UREA NITROGEN 15 mg/dL (9-20); CARBON DIOXIDE 21 mmol/L (22-30); GLUCOSE,RANDOM 92 mg/dL (75-110); TOTAL PROTEIN 6.7 g/dL (6.3-8.3)
[2016-11-02 08:43] LABS: ALT/SGPT 6 U/L (21-72); CALCIUM 8.5 mg/dl (8.6-10.4); MAGNESIUM 1.9 mg/dL (1.6-2.3)
--- NOTE | 2016-11-02 14:02 | CP.PCM.CON ---
History of Present Illness - History of Present Illness History of Present Illness: Palliative consult requested by Vince HELM Reason: Goals of care discussion Patient is a86 yo male admitted to hospital with slurred speech and difficulties walking. Patient was found with right facial droop and Right hemiparesis. The CT head was significant for intracranial bleeding. PMH: prostate CA, chronic back pain Soc. Hx: lives at home, healthcare science specialist for 9-9 years Lele Huerta, sister Madison is NOAlcides ) lives in [facility]. Hx: unknown Review of Systems - Review of Systems Systems not reviewed;Unavailable: Altered Mental Status Past Patient History - Past Social History Smoking Status: Never Smoked - MUSCULOSKELETAL/RHEUMATOLOGICAL Hx Falls: No - GENITOURINARY/GYNECOLOGICAL Hx Genitourinary Disorders: Yes Other/Comment: prostate cancer - PSYCHIATRIC Hx Depression: Yes Hx Substance Use: No - SURGICAL HISTORY Hx Surgeries: No - ANESTHESIA Hx Anesthesia: No Meds Allergies/Adverse Reactions: Allergies Allergy/AdvReac Type Severity Reaction Status Date / Time No Known Allergies Allergy Verified 10/30/16 18:17 - Medications Medications: Current Medications Sodium Chloride (Sodium Chloride 0.9%) 1,000 mls @ 75 mls/hr IV .[id number] [facility] Last Admin: 11/02/16 10:03 Dose: 75 mls/hr Vancomycin/Sodium Chloride (Vancocin) 1 gm in 200 mls @ 133 mls/hr IVPB Q12H [facility] Stop: 11/06/16 16:31 Last Admin: 11/02/16 04:35 Dose: 133 mls/hr Ondansetron HCl (Zofran Inj) 4 mg IVP Q6H PRN PRN Reason: Nausea/Vomiting Pantoprazole Sodium (Protonix Inj) 40 mg IVP DAILY [facility] Last Admin: 11/02/16 10:38 Dose: 40 mg Tamsulosin HCl (Flomax) 0.4 mg PO DAILY [facility] Last Admin: 11/02/16 10:39 Dose: 0.4 mg Physical Exam - Constitutional Appears: Chronically Ill - Head Exam Head Exam: ATRAUMATIC, NORMAL INSPECTION, NORMOCEPHALIC - Eye Exam Eye Exam: EOMI, Normal appearance, PERRL Pupil Exam: NORMAL ACCOMODATION, PERRL - ENT Exam ENT Exam: Mucous Membranes Moist, Normal Exam - Neck Exam Neck exam: Positive for: Normal Inspection - Respiratory Exam Respiratory Exam: Clear to Auscultation Bilateral, NORMAL BREATHING PATTERN - Cardiovascular Exam Cardiovascular Exam: REGULAR RHYTHM, +S1, +S2 - GI/Abdominal Exam GI & Abdominal Exam: Normal Bowel Sounds, Soft - Rectal Exam Rectal Exam: Deferred - Exam Additional comments: Incontinent - Extremities Exam Additional comments: Right knee swollen, right hemiparesis - Back Exam Back exam: NORMAL INSPECTION - Neurological Exam Neurological exam: Alert, Altered - Psychiatric Exam Psychiatric exam: Flat Affect - Skin Skin Exam: Normal Color, Warm Results - Vital Signs Recent Vital Signs: Last Vital Signs Temp 98.4 F 11/02/16 08:00 Pulse 65 11/02/16 08:00 Resp 20 11/02/16 08:00 BP 135/78 11/02/16 08:00 Pulse Ox 98 11/02/16 08:00 - Labs Result Diagrams: 11/02/16 08:18 11/02/16 08:18 Labs: Laboratory Results - last 24 hr 11/01/16 11/01/16 11/01/16 16:49 16:49 17:20 WBC 8.1 RBC 4.34 L Hgb 13.0 Hct 39.5 MCV 90.9 MCH 29.9 MCHC 32.9 L RDW 14.1 Plt Count 209 MPV 9.0 Neut % (Auto) Lymph % (Auto) [place] % (Auto) Eos % (Auto) Baso % (Auto) Neut # Lymph # [place] # Eos # Baso # Sodium 139 Potassium 3.7 Chloride 106 Carbon Dioxide 21 L Anion Gap 16 BUN 17 Creatinine 0.9 Est GFR ( Amer) > 60 Est GFR (Non-Af Amer) > 60 POC Glucose (mg/dL) 92 Random Glucose 89 Calcium 8.3 L Phosphorus Magnesium Total Bilirubin 0.6 AST 14 L ALT 14 L Alkaline Phosphatase 82 Total Protein 6.7 Albumin 3.3 L Globulin 3.4 Albumin/Globulin Ratio 1.0 11/01/16 11/02/16 11/02/16 21:44 07:11 08:18 WBC RBC Hgb Hct MCV MCH MCHC RDW Plt Count MPV Neut % (Auto) Lymph % (Auto) [place] % (Auto) Eos % (Auto) Baso % (Auto) Neut # Lymph # [place] # Eos # Baso # Sodium 142 Potassium 3.6 Chloride 107 Carbon Dioxide 21 L Anion Gap 18 BUN 15 Creatinine 0.9 Est GFR ( Amer) > 60 Est GFR (Non-Af Amer) > 60 POC Glucose (mg/dL) 105 74 Random Glucose 92 Calcium 8.5 L Phosphorus 3.0 Magnesium 1.9 Total Bilirubin 0.8 AST 14 L ALT 6 L D Alkaline Phosphatase 86 Total Protein 6.7 Albumin 3.3 L Globulin 3.5 Albumin/Globulin Ratio 0.9 L 11/02/16 11/02/16 08:18 11:17 WBC 7.6 RBC 4.53 Hgb 13.4 Hct 40.9 MCV 90.3 MCH 29.5 MCHC 32.7 L RDW 14.2 Plt Count 215 MPV 8.4 Neut % (Auto) 69.1 Lymph % (Auto) 17.4 L [place] % (Auto) 7.7 Eos % (Auto) 4.5 H Baso % (Auto) 1.3 Neut # 5.2 Lymph # 1.3 [place] # 0.6 Eos # 0.3 Baso # 0.1 Sodium Potassium Chloride Carbon Dioxide Anion Gap BUN Creatinine Est GFR ( Amer) Est GFR (Non-Af Amer) POC Glucose (mg/dL) 140 H Random Glucose Calcium Phosphorus Magnesium Total Bilirubin AST ALT Alkaline Phosphatase Total Protein Albumin Globulin Albumin/Globulin Ratio Assessment & Plan - Assessment and Plan (Free Text) Assessment: Palliative consult Code status DNR/DNI, no copy on chart, consent given by patient's sister Madison. ROS unobtainable from patient due to AMS. PPS10% I reviewed medical records, all diagnostic studies, examined patient in the bed and discussed his condition with his sister Madison and healthcare science specialist Mrs. Royal over the phone. Patient is alert, altered with slurred speech and right sided hemiparesis. Patient is unable to fallow simple commends. As per nursisng patient has a good appetite and needs max assistance with feedings. BP 135/78, HR 65, [id number] 98 % RA. Labs are WNL. Patient is on Vanco IV and symptomatic Tx. In phone conversation with Lele Huerta I learned that she has been living with patient for the last 8-9 years. She states that until Tuesday10/30/2016 patient was at his baseline behavior. When she went to feed him a dinner at 5 pm , she noticed that patient could not talk nor walk. Mrs. Royal suggested that patient's sister, Madison was NOK for further medical issues. In discussing patient's condition with Madison the sister, I learned that she was already called from the Hospital [facility] and home hospice was arranged. I reviewed the Code status what she confirmed to be DNR/DNI. Impression * Elderly man S/P CVA unable to communicate nor to ambulate * AMS * Patient's sister Madison is a NOK and agreed with home hospice * patient has a healthcare science specialist at home Suggestion * Agree with DNR/DNI * Agree with hospice care
--- NOTE | 2016-11-02 15:26 | CP.PCM.PN ---
<Neri Dudley - Last Filed: 11/02/16 15:23> Subjective - Date & Time of Evaluation Date of Evaluation: 11/02/16 Time of Evaluation: 07:20 - Subjective Subjective: PGY-1 Medicine Progress Note for Dr. Fischer Patient seen and examined at bedside. Patient still has dysarthria, aphasia, and right hemiparesis. ROS unable to be obtained due to AMS. Objective - Vital Signs/Intake and Output Vital Signs (last 24 hours): Temp Pulse Resp BP Pulse Ox 98.4 F 65 20 135/78 98 11/02/16 08:00 11/02/16 08:00 11/02/16 08:00 11/02/16 08:00 11/02/16 08:00 Intake and Output: 11/02/16 11/02/16 06:59 18:59 Intake Total 1550 Balance 1550 - Medications Medications: Current Medications Acetaminophen (Tylenol 325mg Tab) 650 mg PO Q6 PRN PRN Reason: Pain, Mild (1-3) Sodium Chloride (Sodium Chloride 0.9%) 1,000 mls @ 75 mls/hr IV .[id number] [facility] Last Admin: 11/02/16 10:03 Dose: 75 mls/hr Vancomycin/Sodium Chloride (Vancocin) 1 gm in 200 mls @ 133 mls/hr IVPB Q12H [facility] Stop: 11/06/16 16:31 Last Admin: 11/02/16 04:35 Dose: 133 mls/hr Ondansetron HCl (Zofran Inj) 4 mg IVP Q6H PRN PRN Reason: Nausea/Vomiting Pantoprazole Sodium (Protonix Inj) 40 mg IVP DAILY [facility] Last Admin: 11/02/16 10:38 Dose: 40 mg Tamsulosin HCl (Flomax) 0.4 mg PO DAILY [facility] Last Admin: 11/02/16 10:39 Dose: 0.4 mg - Labs Labs: 11/02/16 08:18 11/02/16 08:18 PT 13.7 SECONDS (9.7-12.2) H 10/31/16 07:43 INR 1.2 10/31/16 07:43 APTT 27 SECONDS (21-34) D 10/31/16 07:43 - Constitutional Appears: Confused - Head Exam Head Exam: ATRAUMATIC, NORMOCEPHALIC - Eye Exam Eye Exam: EOMI - ENT Exam ENT Exam: Mucous Membranes Moist - Neck Exam Neck Exam: Normal Inspection - Respiratory Exam Respiratory Exam: Clear to Ausculation Bilateral, NORMAL BREATHING PATTERN - Cardiovascular Exam Cardiovascular Exam: RRR, +S1, +S2 - GI/Abdominal Exam GI & Abdominal Exam: Soft, Normal Bowel Sounds - Extremities Exam Extremities Exam: Normal Capillary Refill - Neurological Exam Neurological Exam: Alert, Awake Neuro motor strength exam: Left Upper Extremity: 3, Right Upper Extremity: 0, Left Lower Extremity: 3, Right Lower Extremity: 0 - Psychiatric Exam Psychiatric exam: Flat Affect - Skin Skin Exam: Dry, Intact, Normal Color, Warm Assessment and Plan - Assessment and Plan (Free Text) Plan: 1. Altered Mental Status med/surg Code Status DNR/DNI CTA: No evidence of saccular aneurysm or AV malformation. Please note abnormality in the left basal ganglia cannot be entirely excluded due to the presence of acute hemorrhage. Follow-up MRI with intravenous contrast/ CT angiogram after resolution of hemorrhage would be helpful to exclude underlying mass/vascular malformation (see full report) Repeat CT head: Stable intraparenchymal hemorrhage at the left temporal lobe and left basal ganglia without significant interval change since the previous exam. Continuous follow-up reassessment is suggested (see full report) CT head: 1. Parenchymal hemorrhage involving the left lentiform nucleus extending medially into the thalamus and superiorly into the dos santos radiata. Minimal mass effect noted 2. Cortical atrophy 3. Lacunar infarct in the right basal ganglia 4. Encephalomalacia in deep white matter structures reflecting small vessel ischemic disease (see full report) CXR : Chronic appearing interstitial changes/fibrotic changes. Granulomatous infection. Biapical pleural thickening. EKG: Sinus rhythm with PVCs at a rate of 69 bpm Neurology consult, Dr. Jose, help appreciated Neurochecks Q1 Elevated head of bed f/u daily labs Management per ICU PT/OT 2. Bacteremia Blood culture grew Gram positive cocci, Staph aureus and Coagulase Neg staph Repeat blood culture then start Vancomycin 1 gm IVPB Q12H Vanco trough 30 min before 4th dose is given 3. History of Prostate CA Continue flomax 4. Prophylactic Measures Scds anticoagulation contraindicated due to IC hemorrhage Protonix 40 mg IVP daily Tylenol 650 mg PO Q6H PRN Hospice eval <Casa Fischer Jr. - Last Filed: 11/07/16 11:19> Objective - Vital Signs/Intake and Output Vital Signs (last 24 hours): Temp Pulse Resp BP Pulse Ox 98.5 F 73 20 157/84 H 97 11/03/16 15:00 11/03/16 15:00 11/03/16 15:00 11/03/16 15:00 11/03/16 15:00 - Labs Labs: 11/03/16 07:47 11/03/16 07:47 PT 13.7 SECONDS (9.7-12.2) H 10/31/16 07:43 INR 1.2 10/31/16 07:43 APTT 27 SECONDS (21-34) D 10/31/16 07:43 Attending/Attestation - Attestation I have personally seen and examined this patient.: Yes I have fully participated in the care of the patient.: Yes I have reviewed all pertinent clinical information, including history, physical exam and plan: Yes Notes (Text): 11/07/16 11:19 Agree with resident note and findings
[2016-11-02 19:42] LABS: RBC URINE 48 /hpf (0-3); URINE BACTERIA RARE (<OCC); URINE BILIRUBIN NEGATIVE (NEGATIVE); URINE BLOOD 2+ (NEGATIVE); URINE COLOR Yellow (YELLOW); URINE GLUCOSE (UA) NORMAL (Normal); URINE KETONE NEGATIVE (NEGATIVE); URINE LEUKOCYTE ESTERASE 3+ Leu/uL (Negative); URINE PROTEIN NEGATIVE (NEGATIVE); URINE UROBILINOGEN NORMAL mg/dL (0.2-1.0); WBC URINE 643 /hpf (0-5)
[2016-11-03 00:59] VITALS: RESP 20
[2016-11-03] MEDS: Sodium Chloride 0.9% 1,000 ML IV SCH ×2 (02:05→05:55)
[2016-11-03] MEDS: Vancomycin 1 gm/NS 200 ml 1 GM/200 ML BAG IVPB SCH (04:30)
[2016-11-03 07:28] VITALS: O2SAT 97
[2016-11-03 07:53] LABS: BASO # 0.1 K/uL (0.0-0.2); BASO % 2.3 % (0.0-2.0); EOS # 0.3 K/uL (0.0-0.7); EOS % 5.6 % (0.0-4.0); HEMATOCRIT 37.1 % (35.0-51.0); LYMPH # 1.1 K/uL (1.0-4.3); LYMPH % 19.3 % (20.0-40.0); MEAN CELL VOLUME 90.3 fL (80.0-94.0); MEAN CORPUSCULAR HEMOGLOBIN 30.4 pg (27.0-31.0); MEAN CORPUSCULAR HGB CONC 33.7 g/dL (33.0-37.0); MEAN PLATELET VOLUME 8.8 fL (7.2-11.7); MONO # 0.5 K/uL (0.0-0.8); MONO % 8.1 % (0.0-10.0); RED CELL DISTRIBUTION WIDTH 14.3 % (11.5-14.5); WHITE BLOOD COUNT 5.8 K/uL (4.8-10.8)
[2016-11-03 08:09] LABS: CHLORIDE 109 mmol/L (98-107); POTASSIUM 3.5 mmol/L (3.6-5.2); SODIUM 142 mmol/L (132-148)
[2016-11-03 08:11] LABS: ALB/GLOB RATIO 0.9 (1.0-2.1); ALKALINE PHOSPHATASE 71 U/L (38-126); AST/SGOT 12 U/L (17-59); BILIRUBIN,TOTAL 0.6 mg/dL (0.2-1.3); BLOOD UREA NITROGEN 14 mg/dL (9-20); CARBON DIOXIDE 23 mmol/L (22-30); GFR AFRICAN-AMERICAN > 60; TOTAL PROTEIN 6.2 g/dL (6.3-8.3)
[2016-11-03 08:12] LABS: ALT/SGPT 16 U/L (21-72); CALCIUM 8.1 mg/dl (8.6-10.4); GLUCOSE,RANDOM 77 mg/dL (75-110); PHOSPHOROUS 3.5 mg/dL (2.5-4.5)
[2016-11-03] MEDS ORDERED: Potassium Chloride 20 mEq ER Tab PO ONE (09:26)
--- NOTE | 2016-11-03 11:17 | CP.PCM.PN ---
<Neri Dudley - Last Filed: 11/03/16 13:44> Subjective - Date & Time of Evaluation Date of Evaluation: 11/03/16 Time of Evaluation: 07:40 - Subjective Subjective: PGY-1 Medicine Progress Note for Dr. Fischer Patient seen and examined at bedside. No acute event overnight. Patient laying in bed quietly. He has dysarthria, aphasia, and right hemiparesis. ROS unable to be obtained due to AMS. Objective - Vital Signs/Intake and Output Vital Signs (last 24 hours): Temp Pulse Resp BP Pulse Ox 98.3 F 67 20 134/81 97 11/03/16 07:27 11/03/16 07:27 11/03/16 07:27 11/03/16 07:27 11/03/16 07:27 Intake and Output: 11/03/16 11/03/16 06:59 18:59 Intake Total 1470 Balance 1470 - Medications Medications: Current Medications Acetaminophen (Tylenol 325mg Tab) 650 mg PO Q6 PRN PRN Reason: Pain, Mild (1-3) Last Admin: 11/02/16 22:45 Dose: 650 mg Sodium Chloride (Sodium Chloride 0.9%) 1,000 mls @ 75 mls/hr IV .[id number] [facility] Last Admin: 11/03/16 05:55 Dose: Not Given Vancomycin/Sodium Chloride (Vancocin) 1 gm in 200 mls @ 133 mls/hr IVPB Q12H [facility] Stop: 11/06/16 16:31 Last Admin: 11/03/16 04:30 Dose: Not Given Ceftriaxone Sodium 1 gm/ (Sodium Chloride) 100 mls @ 100 mls/hr IVPB Q12H [facility] Ondansetron HCl (Zofran Inj) 4 mg IVP Q6H PRN PRN Reason: Nausea/Vomiting Pantoprazole Sodium (Protonix Inj) 40 mg IVP DAILY [facility] Last Admin: 11/03/16 10:06 Dose: 40 mg Tamsulosin HCl (Flomax) 0.4 mg PO DAILY [facility] Last Admin: 11/03/16 10:06 Dose: 0.4 mg - Labs Labs: 11/03/16 07:47 11/03/16 07:47 PT 13.7 SECONDS (9.7-12.2) H 10/31/16 07:43 INR 1.2 10/31/16 07:43 APTT 27 SECONDS (21-34) D 10/31/16 07:43 - Constitutional Appears: No Acute Distress - Head Exam Head Exam: ATRAUMATIC, NORMOCEPHALIC - Eye Exam Eye Exam: EOMI Pupil Exam: PERRL - ENT Exam ENT Exam: Mucous Membranes Moist - Neck Exam Neck Exam: Normal Inspection - Respiratory Exam Respiratory Exam: Clear to Ausculation Bilateral, NORMAL BREATHING PATTERN - Cardiovascular Exam Cardiovascular Exam: RRR, +S1, +S2 - GI/Abdominal Exam GI & Abdominal Exam: Soft, Normal Bowel Sounds - Extremities Exam Extremities Exam: Normal Capillary Refill - Back Exam Back Exam: absent: CVA tenderness (L), CVA tenderness (R) - Neurological Exam Neurological Exam: Awake - Psychiatric Exam Psychiatric exam: Flat Affect - Skin Skin Exam: Dry, Intact, Normal Color, Warm Assessment and Plan - Assessment and Plan (Free Text) Plan: 1. Altered Mental Status med/surg Code Status DNR/DNI CTA: No evidence of saccular aneurysm or AV malformation. Please note abnormality in the left basal ganglia cannot be entirely excluded due to the presence of acute hemorrhage. Follow-up MRI with intravenous contrast/ CT angiogram after resolution of hemorrhage would be helpful to exclude underlying mass/vascular malformation (see full report) Repeat CT head: Stable intraparenchymal hemorrhage at the left temporal lobe and left basal ganglia without significant interval change since the previous exam. Continuous follow-up reassessment is suggested (see full report) CT head: 1. Parenchymal hemorrhage involving the left lentiform nucleus extending medially into the thalamus and superiorly into the dos santos radiata. Minimal mass effect noted 2. Cortical atrophy 3. Lacunar infarct in the right basal ganglia 4. Encephalomalacia in deep white matter structures reflecting small vessel ischemic disease (see full report) CXR : Chronic appearing interstitial changes/fibrotic changes. Granulomatous infection. Biapical pleural thickening. EKG: Sinus rhythm with PVCs at a rate of 69 bpm Neurology consult, Dr. Jose, help appreciated Neurochecks Q1 Elevated head of bed f/u daily labs Management per ICU PT/OT 2. Bacteremia No leukocytosis, afebrile Blood culture grew Gram positive cocci, Staph aureus and Coagulase Neg staph Repeat blood culture Hold Vancomycin 1 gm IVPB Q12H Vanco trough 19.1 3. UTI UA: 2+ blood, 3+ Leuk esterase, WBC 643, RBC 48 Urine culture Rocephin 1 gm IVPB Q12H 4. History of Prostate CA Continue flomax 5. Prophylactic Measures Scds anticoagulation contraindicated due to IC hemorrhage Protonix 40 mg IVP daily Tylenol 650 mg PO Q6H PRN Hospice eval <Casa Fischer Jr. - Last Filed: 11/07/16 11:21> Objective - Vital Signs/Intake and Output Vital Signs (last 24 hours): Temp Pulse Resp BP Pulse Ox 98.5 F 73 20 157/84 H 97 11/03/16 15:00 11/03/16 15:00 11/03/16 15:00 11/03/16 15:00 11/03/16 15:00 - Labs Labs: 11/03/16 07:47 11/03/16 07:47 PT 13.7 SECONDS (9.7-12.2) H 10/31/16 07:43 INR 1.2 10/31/16 07:43 APTT 27 SECONDS (21-34) D 10/31/16 07:43 Attending/Attestation - Attestation I have personally seen and examined this patient.: Yes I have fully participated in the care of the patient.: Yes I have reviewed all pertinent clinical information, including history, physical exam and plan: Yes Notes (Text): 11/07/16 11:21 Agree with resident note and findings
--- NOTE | 2016-11-03 14:19 | CP.PCM.DIS ---
Provider - Provider Date of Admission: 10/30/16 21:00 Attending physician: Casa Fischer Jr, MD Consults: Neuro: Dr. Jose Palliative: Ms. Schroeder Time Spent in preparation of Discharge (in minutes): 40 Diagnosis - Discharge Diagnosis (1) Intracranial hemorrhage Status: Acute Priority: High Comment: see hospital course Hospital Course - Lab Results Lab Results: Micro Results 10/30/16 22:34 Blood Blood Culture - Final Coagulase Neg Staphylococcus 10/30/16 22:34 Blood Gram Stain - Final 10/30/16 22:34 Blood S.aureus & Coag-Neg Staph PNA FISH - Preliminary 10/30/16 22:34 Blood Blood Culture - Final Coagulase Neg Staphylococcus 10/30/16 22:34 Blood Gram Stain - Preliminary 11/01/16 13:30 Blood Blood Culture - Preliminary NO GROWTH AFTER 24 HOURS 11/01/16 16:30 Blood Blood Culture - Preliminary NO GROWTH AFTER 24 HOURS 10/30/16 22:31 Naris MRSA Culture (Admit) - Final MRSA NOT DETECTED Most Recent Lab Values WBC 5.8 K/uL (4.8-10.8) 11/03/16 07:47 RBC 4.11 Mil/uL (4.40-5.90) L 11/03/16 07:47 Hgb 12.5 g/dL (12.0-18.0) 11/03/16 07:47 Hct 37.1 % (35.0-51.0) 11/03/16 07:47 MCV 90.3 fL (80.0-94.0) 11/03/16 07:47 MCH 30.4 pg (27.0-31.0) 11/03/16 07:47 MCHC 33.7 g/dL (33.0-37.0) 11/03/16 07:47 RDW 14.3 % (11.5-14.5) 11/03/16 07:47 Plt Count 198 K/uL (130-400) 11/03/16 07:47 MPV 8.8 fL (7.2-11.7) 11/03/16 07:47 Neut % (Auto) 64.7 % (50.0-75.0) 11/03/16 07:47 Lymph % (Auto) 19.3 % (20.0-40.0) L 11/03/16 07:47 [place] % (Auto) 8.1 % (0.0-10.0) 11/03/16 07:47 Eos % (Auto) 5.6 % (0.0-4.0) H 11/03/16 07:47 Baso % (Auto) 2.3 % (0.0-2.0) H 11/03/16 07:47 Neut # 3.7 K/uL (1.8-7.0) 11/03/16 07:47 Lymph # 1.1 K/uL (1.0-4.3) 11/03/16 07:47 [place] # 0.5 K/uL (0.0-0.8) 11/03/16 07:47 Eos # 0.3 K/uL (0.0-0.7) 11/03/16 07:47 Baso # 0.1 K/uL (0.0-0.2) 11/03/16 07:47 PT 13.7 SECONDS (9.7-12.2) H 10/31/16 07:43 INR 1.2 10/31/16 07:43 APTT 27 SECONDS (21-34) D 10/31/16 07:43 Sodium 142 mmol/L (132-148) 11/03/16 07:47 Potassium 3.5 mmol/L (3.6-5.2) L 11/03/16 07:47 Chloride 109 mmol/L (98-107) H 11/03/16 07:47 Carbon Dioxide 23 mmol/L (22-30) 11/03/16 07:47 Anion Gap 14 (10-20) 11/03/16 07:47 BUN 14 mg/dL (9-20) 11/03/16 07:47 Creatinine 0.9 MG/DL (0.8-1.5) 11/03/16 07:47 Est GFR ( Amer) > 60 11/03/16 07:47 Est GFR (Non-Af Amer) > 60 11/03/16 07:47 POC Glucose (mg/dL) 120 mg/dL (65-110) H 11/02/16 16:35 Random Glucose 77 mg/dL (75-110) 11/03/16 07:47 Hemoglobin A1c 5.6 % (4.2-6.5) 10/30/16 19:05 Calcium 8.1 mg/dl (8.6-10.4) L 11/03/16 07:47 Phosphorus 3.5 mg/dL (2.5-4.5) 11/03/16 07:47 Magnesium 2.0 mg/dL (1.6-2.3) 11/03/16 07:47 Total Bilirubin 0.6 mg/dL (0.2-1.3) 11/03/16 07:47 AST 12 U/L (17-59) L 11/03/16 07:47 ALT 16 U/L (21-72) L D 11/03/16 07:47 Alkaline Phosphatase 71 U/L (38-126) 11/03/16 07:47 Troponin I < 0.0120 ng/mL (0.00-0.120) 10/30/16 19:05 NT-Pro-B Natriuret Pep 358 pg/mL (0-900) 10/31/16 06:15 Total Protein 6.2 g/dL (6.3-8.3) L 11/03/16 07:47 Albumin 2.9 g/dL (3.5-5.0) L 11/03/16 07:47 Globulin 3.3 gm/dL (2.2-3.9) 11/03/16 07:47 Albumin/Globulin Ratio 0.9 (1.0-2.1) L 11/03/16 07:47 Triglycerides 56 mg/dL (0-149) 10/31/16 06:15 Cholesterol 126 mg/dL (0-199) 10/31/16 06:15 LDL Cholesterol Direct 66 mg/dL (0-129) 10/31/16 06:15 HDL Cholesterol 36 mg/dL (30-70) 10/31/16 06:15 TSH 3rd Generation 1.75 mIU/L (0.46-4.68) 10/31/16 06:15 Urine Color Yellow (YELLOW) 11/02/16 19:23 Urine Clarity Hazy (Clear) 11/02/16 19:23 Urine pH 5.0 (5.0-8.0) 11/02/16 19:23 Ur Specific [place] 1.013 (1.003-1.030) 11/02/16 19:23 Urine Protein Negative mg/dL (NEGATIVE) 11/02/16 19:23 Urine Glucose (UA) Normal mg/dL (Normal) 11/02/16 19: Urine Ketones Negative mg/dL (NEGATIVE) 11/02/16 19: Urine Blood 2+ (NEGATIVE) H 11/02/16 19:23 Urine Nitrate Negative (NEGATIVE) 11/02/16 19:23 Urine Bilirubin Negative (NEGATIVE) 11/02/16 19:23 Urine Urobilinogen Normal mg/dL (0.2-1.0) 11/02/16 19:23 Ur Leukocyte Esterase 3+ Marti/uL (Negative) H 11/02/16 19:23 Urine WBC (Auto) 643 /hpf (0-5) H 11/02/16 19:23 Urine RBC (Auto) 48 /hpf (0-3) H 11/02/16 19:23 Urine WBC Clumps (Auto) Few /hpf (NONE) H 10/31/16 00:00 Ur Squamous Epith Cells 1 /hpf (0-5) 11/02/16 19: Urine Bacteria Rare (<OCC) 11/02/16 19: Vancomycin Trough 19.1 ug/mL (5.0-10.0) H 11/03/16 02:30 Blood Type A NEGATIVE 10/30/16 20:39 Antibody Screen Negative 10/30/16 20:39 - Hospital Course Hospital Course: 86 M with PMH of Prostate CA was brought in by EMS to the [facility] after kiln transfer operator had trouble waking him up at around 6:30pm. History was provided by kiln transfer operatorTania ([phone]), since patient was unable to provide any information. Patient had slurred speech, right hemiparesis and right facial droop at that time. Enforcement Manager reports patient had breakfast and lunch with no issues. Patient was last seen at his baseline around noon. Patient is normally bedridden but able to move all four extremities and alert, awake, and oriented x 3. ROS was unobtainable due to altered mental status. Patient was admitted to ICU for parenchymal hemmorahge. CTA: No evidence of saccular aneurysm or AV malformation. Please note abnormality in the left basal ganglia cannot be entirely excluded due to the presence of acute hemorrhage. Follow-up MRI with intravenous contrast/ CT angiogram after resolution of hemorrhage would be helpful to exclude underlying mass/vascular malformation ( see full report). CT head was done and showed 1. Parenchymal hemorrhage involving the left lentiform nucleus extending medially into the thalamus and superiorly into the dos santos radiata. Minimal mass effect noted 2. Cortical atrophy 3. Lacunar infarct in the right basal ganglia 4. Encephalomalacia in deep white matter structures reflecting small vessel ischemic disease (see full report). Repeat CT head demonstrated Stable intraparenchymal hemorrhage at the left temporal lobe and left basal ganglia without significant interval change since the previous exam. Continuous follow-up reassessment is suggested (see full report). CXR indicated Chronic appearing interstitial changes/fibrotic changes. Granulomatous infection. Biapical pleural thickening. EKG revealed Sinus rhythm with PVCs at a rate of 69 bpm Neurology was consulted, Dr. Jose, help was appreciated. Patient Code Status was made DNR/DNI by [facility]. Patient spent one day in ICU then was downgraded since IC hemorhage was stable. Patient was found to have gram positive cocci on blood culture so Vancomycin was started. Repeat blood culture was negtaive. Urine culture revelaed 3+ leuk esterase, 2+ blood 643 WBC. Rocephin was started. On 11/03, patient was accepted to home hospice so he was cleared for discharge by Dr. Fischer. Patient was sent home with ciprofloxacin for 7 days. This is a summary of the hospital course. Please refer to EMR for more specific details. Discharge Plan - Discharge Medications Prescriptions: Ciprofloxacin [Cipro] 500 mg PO BID #14 tab Lactobacillus Acidophilus [Bacid Acidophilus] 1 cap PO BID #14 cap - Follow Up Plan Condition: STABLE Disposition: HOSPICE - HOME Additional Instructions: Patient medically stable for discharge to home hospice by Dr. Fischer. Patient to take new medications Ciprofloxacin 500 mg twice per day for 7 days and Bacid 1 tab by mouth twice per day for 7 days. Patient is to resume home medications as previously prescribed. Patient is to follow up with PMD and Neurology (Dr. Jose ) within 1 week of discharge. Please return to ER if symptoms persist or condition worsens. All instructions stated above were discussed in detail with kiln transfer operator and family. They verbalized understanding and agreement. Referrals: Donavan Jose MD [Staff Provider] - Casa Fischer Jr., MD [Medical Doctor] - 1 Week
[2016-11-03 15:59] VITALS: BP 157/84; PULSE 73; TEMP 98.5
== END 2016-11-03 21:30 | disposition hospice, home (50) | DRG 65 ==
LOC: C.ER 18:14 → C.9I 21:00 → C.3T 11-01 14:45
PROVIDERS: ADMIT Internal Medicine; ATTEND Internal Medicine
DX: I62.9 Nontraumatic intracranial hemorrhage, unspecified (principal); G81.91 Hemiplegia, unspecified affecting right dominant side; F03.90 Unspecified dementia, unspecified severity, without behavioral disturbance, psychotic disturbance, mood disturbance, and anxiety; F32.9 Major depressive disorder, single episode, unspecified; R29.810 Facial weakness; R47.81 Slurred speech; Z74.01 Bed confinement status; Z85.46 Personal history of malignant neoplasm of prostate; R47.01 Aphasia; G89.29 Other chronic pain; M54.9 Dorsalgia, unspecified; Z66 Do not resuscitate; G93.89 Other specified disorders of brain; R82.79 Other abnormal findings on microbiological examination of urine